=== PATIENT | female | born 1980 | race Caucasian/White ===

== ENCOUNTER 2022-01-27 14:08 | Emergency (ER) | payer OTHER ==
[2022-01-27] MEDS ORDERED: DIPH,PERTUS(ACELL)TETVAC-LF 0.5 ML VIAL IM ONE (14:16)
[2022-01-27 14:17] VITALS: BP 130/80; PULSE 98; RESP 16
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
[2022-01-27] MEDS ORDERED: ACETAMINOPHEN TAB 500 MG TAB PO STA (15:28)
--- NOTE | 2022-01-27 16:17 | CT ---
EXAMINATION TYPE: CT brain cspine wo con DATE OF EXAM: 01/27/2022 COMPARISON: None HISTORY: CT DLP: mGycm Automated exposure control for dose reduction was used. Images obtained of the brain and cervical spine with no contrast. The ventricles appear normal. No mass effect or midline shift. No sign of intracranial hemorrhage. No evidence of cerebral edema. The calvarium is intact. Skull base is intact. There is normal aeration of the mastoid sinuses. There is moderate anterior hypertrophic osteophyte formation at C4-5 and C5-6. Disc spaces are fairly normal. No compression fracture. Facet joints are intact. Cervical vertebra have normal alignment. 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 No fracture se en. Negative CT scan of the brain.
--- NOTE | 2022-01-27 16:31 | XR ---
EXAMINATION TYPE: XR shoulder complete RT DATE OF EXAM: 01/27/2022 COMPARISON: NONE HISTORY: Pain TECHNIQUE: 3 views FINDINGS: The glenohumeral joint is intact. No fracture nor dislocation. There are no pathologic calc ifications. Scapula is intact. IMPRESSION: Negative right shoulder exam.
== END 2022-01-27 16:52 | disposition home or self-care (01) ==
LOC: EC 14:08
DX: S16.1XXA Strain of muscle, fascia and tendon at neck level, initial encounter (principal); S40.021A Contusion of right upper arm, initial encounter; Z88.2 Allergy status to sulfonamides; Z23 Encounter for immunization; V89.2XXA Person injured in unspecified motor-vehicle accident, traffic, initial encounter
CPT/HCPCS: 70450; 72125; 90471; 90715; 99284